=== PATIENT | female | born 1990 | race Caucasian/White ===

== ENCOUNTER 2017-10-07 12:19 | Outpatient (CLI) | payer OTHER ==
[~2017-10-07] VITALS: Ht 160 cm; Wt 86.3 kg
[~2017-10-07 12:19] MED LIST: CALC-649 PO; FERR27TA PO; PREN1TAB49 PO
[2017-10-07 13:16] VITALS: BP 129/74; PULSE 87; RESP 18; Ht 160 cm; Wt 86.3 kg
[2017-10-07 13:24] LABS: BASOPHILS % 0.4 % (0.0-2.0); EOSINOPHILS % 0.2 % (0.0-7.0); HEMATOCRIT 36.4 % (37.0-47.0); HEMOGLOBIN 12.5 g/dl (12.0-16.0); LYMPHOCYTES % 19.7 % (15.0-51.0); MEAN CORPUSCULAR HEMOGLOBIN 31.3 pg (29.0-33.0); MEAN CORPUSCULAR HGB CONC 34.3 g/dl (32.0-37.0); MEAN PLATELET VOLUME 11.8 fl (7.4-10.4); MONOCYTE # 0.8 10^3/ul (0.3-0.9); MONOCYTES % 8.2 % (0.0-11.0); NEUTROPHILS % 70.3 % (39.0-77.0); PLATELET COUNT 243 10^3/UL (140-415); RED CELL DISTRIBUTION WIDTH 13.4 % (11.5-14.5)
[2017-10-07 13:25] LABS: ADD UMIC NO; UR ASCORBIC ACID 20 mg/dL (NEGATIVE); UR BILIRUBIN (Dip) NEGATIVE (NEGATIVE); UR BLOOD (Dip) NEGATIVE (NEGATIVE); UR CLARITY CLEAR (CLEAR); UR COLOR YELLOW (YELLOW); UR GLUCOSE (Dip) NEGATIVE (NEGATIVE); UR KETONES (Dip) NEGATIVE (NEGATIVE); UR LEUKOCYTE ESTERASE (Dip) NEGATIVE Leu/ul (NEGATIVE); UR NITRITE (Dip) NEGATIVE (NEGATIVE); UR SPECIFIC GRAVITY (Dip) 1.016 (1.003-1.030); UR TOTAL PROTEIN (Dip) NEGATIVE (NEGATIVE); UR UROBILINOGEN (Dip) NEGATIVE (NEGATIVE)
[2017-10-07 13:36] LABS: INR 0.84; PROTIME 11.5 Sec (12.2-14.2); PT RATIO 0.9
[2017-10-07 13:37] LABS: PARTIAL THROMBOPLASTIN TIME 27.4 Sec (25.0-35.0)
[2017-10-07 13:39] LABS: ALBUMIN 3.3 g/dl (3.3-4.9); ALBUMIN/GLOBULIN RATIO 0.8; CALCIUM 9.4 mg/dl (8.4-10.2); CREATININE 0.48 mg/dl (0.44-1.00); POTASSIUM 4.3 mmol/L (3.5-5.1); TOTAL PROTEIN 7.4 g/dl (6.1-8.1); URIC ACID 6.1 mg/dl (3.1-7.9)
--- NOTE | 2017-10-07 13:47 | RADRPT ---
PROCEDURE: US OB biophysical profile. CLINICAL INDICATION: induced hypertension TECHNIQUE: Multiple sonographic images of the pelvis were obtained. The images were reviewed on a PACS workstation. COMPARISON: October 06, 2017 FINDINGS: There is a single live intrauterine , in cephalic presentation. A normal heart rate i s identified measuring 142 beats per minute. The amniotic fluid index is within normal limits measur ing 10.7 cm. Placenta is grade II, located posteriorly. Biophysical profile: movement 2/2 tone 2/2. breathing 2/2 DARYL 2/2 Total 06/30 IMPRESSION: 1. Biophysical profile score of 8/8. 2. Single live intrauterine in cephalic presentation with normal heart rate of 142 b pm. 3. Normal amniotic fluid index of 10.7 cm. Physician Rhona Date Time Electronically viewed and signed by Physician Rhona on 10/07/2017 13:47 PRINCESS/
--- NOTE | 2017-10-07 13:57 | RADRPT ---
PROCEDURE: US OB. CLINICAL INDICATION: Size and dates . PIH TECHNIQUE: Multiple sonographic images of the pelvis and gravid uterus were obtained. The images were reviewed on a PACS workstation. COMPARISON: US PELVIS 10/07/2017 FINDINGS: There is a single viable intrauterine gestation. Cardiac activity is present with 148 beats per min ewa. There is a vertex presentation. The placenta is posterior. There is no evidence for an abruption or placenta previa. Measurements were made in order to determine age. The results are as follows: BPD =9.1 cm HC =33.2 cm AC =33.2 cm FL =6.6 cm Estimated gestational age of approximately 36 weeks and 3 days based on ultrasound measurements. Clinical age: 37 weeks and 1 day. The estimated date of delivery is 11/01/17, based on ultrasound measurements. The EFW = 2927 g, 36.8%, based on LMP age. RPTAT: AA IMPRESSION: Single viable intrauterine gestation of approximately 36 weeks and 3 days based on ultrasound measu rements. .Diego Hubbard MD, MD Date Time Electronically viewed and signed by .Diego Hubbard MD, on 10/07/2017 13:57 .S/
--- NOTE | 2017-10-07 15:00 | TRIAGE ---
OB Triage Datetime Report Generated by CPN: 10/07/2017 15:00 Datetime: 10/07/2017 14:30 Stage of : OB Triage Maternal Assessment Level of Consciousness: Fully Conscious Labor Evaluation Frequency: 4UC/HR Monitor Mode: External Duration (sec)2399: 30-210 Quality: Mild Resting Tone [place]: Relaxed Heart Rate FHR Baseline Rate: 145 Monitor Mode: External US Variability: Moderate 6-25 bpm Accelerations: 15X15 Decelerations: None Pain Assessment Pain Scale: 0 Pain Goal: 3 Vaginal Exam Membrane Status: Intact Vaginal Bleeding: None Datetime: 10/07/2017 13:30 Stage of : OB Triage Maternal Assessment Level of Consciousness: Fully Conscious Labor Evaluation Frequency: 4UC/HR Monitor Mode: External Duration (sec)2399: 100-110 Quality: Mild Resting Tone [place]: Relaxed Heart Rate FHR Baseline Rate: 145 Monitor Mode: External US Variability: Moderate 6-25 bpm Accelerations: 15X15 Decelerations: None Category: Category I Pain Assessment Pain Scale: 0 Pain Goal: 3 Vaginal Exam Membrane Status: Intact Vaginal Bleeding: None Datetime: 10/07/2017 13:12 Assessment Type: Triage Maternal Assessment Level of Consciousness: Fully Conscious DTR's/Clonus: DTRs 2+; No Clonus Headache: Denies Blurred Vision: No Respiratory Effort: Unlabored; Regular Rhythm; Equal Expansion Breath Sounds, Left: Clear and Equal Breath Sounds, Right: Clear and Equal Nausea/Vomiting: Denies RUQ Epigastric Pain: Denies Lower Extremities Edema: Bilateral Lower Extremities Degree: 1+ Upper Extremities Edema: None Degree: None Facial Edema: None Fall Risk Assessment History of Falling: (0) No Secondary Diagnosis: (0) No Ambulatory Aid: (0) Bedrest/Nurse Assist IV Therapy: (0) No Gait: (0) Normal/Bedrest/Immobile Mental Status: (0) Oriented to Own Ability Fall Score: 0 Fall Risk Score Definition: No Risk: No action required Datetime: 10/07/2017 13:10 Time of Arrival: 10/07/2017 12:14 EGA: 37.1 Arrived By: Ambulatory Arrived From: Office Chief Complaint: PT SENT FROM CLINIC FOR POSSIBLE PIH Movement: Present Contractions: Denies/Absent Rupture of Membranes: Denies Vaginal Bleeding: None Vaginal Discharge: Denies Recent Sexual Intercouse: Denies Abdominal Trauma: Not Applicable Patient Complaints: None Time Provider Notified: 10/07/2017 12:14 Provider Notified: AWA Initial Plan: PIH PANEL/BPP/EFW Datetime: 10/07/2017 12:31 Monitor Mode: External Monitor Mode: External US
--- NOTE | 2017-10-07 16:09 | PN ---
Triage Information Date/Time 10/07/2017 Reason for visit: elevated blood pressure noted in office visit Weeks of Gestation 37 weeks and 1 day /Para Diabetes: none Hypertention: none Additional information 27 years old with IUP at 37 weeks and 1 days noted to have elevated Blood pressure in office visit, was sent to Triage for r/o Preclampsia. Denies any ALCANTAR, Blurred vision or epigastric pain. She denies any LOF, vaginal bleeding or decreased movement. Denies any other complaint Objective Vital Signs Date Time Temp Pulse Resp B/P Pulse Ox O2 Delivery O2 Flow Rate FiO2 10/07/17 13:16 98.2 87 18 129/74 98 Room Air Heart Rate: 130's Contractions: None Exam GSA: A&O, NAD Abdomen." Soft , non tender, gravid,. Fundal Height consistent with GA NST: Cat 1 Extremities: no calf tendernes, no click, no edema Hematology - 72 Hrs Test 10/07/17 12:30 White Blood Count 10.010^3/ul (4.8-10.8) Red Blood Count 4.0010^6/ul (4.20-5.40) L Hemoglobin 12.5g/dl (12.0-16.0) Hematocrit 36.4% (37.0-47.0) L Mean Corpuscular Volume 91.0fl (82.0-101.0) Mean Corpuscular Hemoglobin 31.3pg (29.0-33.0) Mean Corpuscular Hemoglobin Concent 34.3g/dl (32.0-37.0) Red Cell Distribution Width 13.4% (11.5-14.5) Platelet Count 18748^3/UL (140-415) Mean Platelet Volume 11.8fl (7.4-10.4) H Neutrophils % 70.3% (39.0-77.0) Lymphocytes % 19.7% (15.0-51.0) Monocytes % 8.2% (0.0-11.0) Eosinophils % 0.2% (0.0-7.0) Basophils % 0.4% (0.0-2.0) Nucleated Red Blood Cells % 0.0/100WBC (0.0-0.0) Neutrophils # 7.010^3/ul (1.6-7.5) Lymphocytes # 2.010^3/ul (0.8-2.9) Monocytes # 0.810^3/ul (0.3-0.9) Eosinophils # 0.010^3/ul (0.0-0.5) Basophils # 0.010^3/ul (0.0-0.1) Nucleated Red Blood Cells # 0.010^3/ul (0.0-0.0) Chemistry Test 10/07/17 12:30 Sodium Level 138mmol/L (135-144) Potassium Level 4.3mmol/L (3.5-5.1) Chloride Level 109mmol/L (97-110) Carbon Dioxide Level 21mmol/L (21-31) Anion Gap 12 (8-16) Blood Urea Nitrogen 12mg/dl (7-20) Creatinine 0.48mg/dl (0.44-1.00) Glucose Level 85mg/dl (70-220) Uric Acid 6.1mg/dl (3.1-7.9) Calcium Level 9.4mg/dl (8.4-10.2) Total Bilirubin 0.0mg/dl (0.2-1.3) L Direct Bilirubin 0.00mg/dl (0.00-0.20) Indirect Bilirubin 0.0mg/dl (0-1.1) Aspartate Amino Transf (AST/SGOT) 43IU/L (15-46) Alanine Aminotransferase (ALT/SGPT) 65IU/L (13-69) Alkaline Phosphatase 244IU/L (42-121) H Total Protein 7.4g/dl (6.1-8.1) Albumin 3.3g/dl (3.3-4.9) Globulin 4.10g/dl (1.3-3.2) H Albumin/Globulin Ratio 0.80 Results/Medications Result Diagram: 10/07/17 1230 10/07/17 1230 Results 24 hrs Laboratory Tests Test 10/07/17 12:30 White Blood Count 10.0 Red Blood Count 4.00 L Hemoglobin 12.5 Hematocrit 36.4 L Mean Corpuscular Volume 91.0 Mean Corpuscular Hemoglobin 31.3 Mean Corpuscular Hemoglobin Concent 34.3 Red Cell Distribution Width 13.4 Platelet Count 243 Mean Platelet Volume 11.8 H Neutrophils % 70.3 Lymphocytes % 19.7 Monocytes % 8.2 Eosinophils % 0.2 Basophils % 0.4 Nucleated Red Blood Cells % 0.0 Neutrophils # 7.0 Lymphocytes # 2.0 Monocytes # 0.8 Eosinophils # 0.0 Basophils # 0.0 Nucleated Red Blood Cells # 0.0 Prothrombin Time 11.5 L Prothrombin Time Ratio 0.9 INR International Normalized Ratio 0.84 Activated Partial Thromboplast Time 27.4 Fibrinogen 672.0 H Urine Color YELLOW Urine Clarity CLEAR Urine pH 6.0 Urine Specific [place] 1.016 Urine Ketones NEGATIVE Urine Nitrite NEGATIVE Urine Bilirubin NEGATIVE Urine Urobilinogen NEGATIVE Urine Leukocyte Esterase NEGATIVE Urine Hemoglobin NEGATIVE Urine Glucose NEGATIVE Urine Total Protein NEGATIVE Sodium Level 138 Potassium Level 4.3 Chloride Level 109 Carbon Dioxide Level 21 Anion Gap 12 Blood Urea Nitrogen 12 Creatinine 0.48 Glucose Level 85 Uric Acid 6.1 Calcium Level 9.4 Total Bilirubin 0.0 L Direct Bilirubin 0.00 Indirect Bilirubin 0.0 Aspartate Amino Transf (AST/SGOT) 43 Alanine Aminotransferase (ALT/SGPT) 65 Alkaline Phosphatase 244 H Total Protein 7.4 Albumin 3.3 Globulin 4.10 H Albumin/Globulin Ratio 0.80 Imaging Results PROCEDURE: US OB. CLINICAL INDICATION: Size and dates . PIH TECHNIQUE: Multiple sonographic images of the pelvis and gravid uterus were obtained. The images were reviewed on a PACS workstation. COMPARISON: US PELVIS 10/07/2017 FINDINGS: There is a single viable intrauterine gestation. Cardiac activity is present with 148 beats per minute. There is a vertex presentation. The placenta is posterior. There is no evidence for an abruption or placenta previa. Measurements were made in order to determine age. The results are as follows: BPD = 9.1 cm HC = 33.2 cm AC = 33.2 cm FL = 6.6 cm Estimated gestational age of approximately 36 weeks and 3 days based on ultrasound measurements. Clinical age: 37 weeks and 1 day. The estimated date of delivery is 11/01/17, based on ultrasound measurements. The EFW = 2927 g, 36.8%, based on LMP age. RPTAT: AA IMPRESSION: Single viable intrauterine gestation of approximately 36 weeks and 3 days based on ultrasound measurements. Disposition: Discharge Assessment/Plan 27 years old with IUP at 37 weeks and 1 day elevated blood pressure noted in office Blood pressure noted to be normal during observation in Triage PIH labs are normal DARYL: 10 normal Strict preclampsia discussed Strict labor precaution given DC home follow up in 2-3 days with Ob office Has appt with OB office in 3 days Signs and symptoms again discussed in detail.Patient verbalized understanding'/ LEESA MALDONADO MD Oct 07, 2017 16:09
== END 2017-10-07 15:10 | disposition home or self-care (01) ==
LOC: OBT 12:19 → L-D 12:19 → OBT 15:10
PROVIDERS: ATTEND Obstetrics & Gynecology
DX: O26.893 Other specified pregnancy related conditions, third trimester (principal); R03.0 Elevated blood-pressure reading, without diagnosis of hypertension; Z3A.37 37 weeks gestation of pregnancy
CPT/HCPCS: 36415; 76815; 76818; 80053; 81003; 84560; 85025; 85384; 85610; 85730; Z7500; G0463

== ENCOUNTER 2017-10-21 22:00 | Inpatient (IN) | payer OTHER ==
[~2017-10-21] VITALS: Ht 160 cm; Wt 85.5 kg
[~2017-10-21 22:00] MED LIST changes: -CALC-649 PO
[2017-10-21 23:58] VITALS: Ht 160 cm; Wt 85.5 kg
[2017-10-22] MEDS ORDERED: LIDOCAINE 1% (MPF) 30 ML INJ INJ PRN
[2017-10-22] MEDS ORDERED: LACTATED RINGER'S 1,000 ML IV PRN
[2017-10-22] MEDS ORDERED: BUTORPHANOL 2 MG INJ IV PRN
[2017-10-22] MEDS ORDERED: IBUPROFEN 600 MG TAB PO PRN
[2017-10-22] MEDS ORDERED: OXYCODONE/ASPIRIN (4.88/325) TAB PO PRN
[2017-10-22] MEDS: LACTATED RINGER'S 1,000 ML IV SCH ×3 (00:21→15:40)
--- NOTE | 2017-10-22 00:35 | RADRPT ---
PROCEDURE: ULTRASOUND OBSTETRICAL CLINICAL INDICATION: 27-year-old female in labor for size and date determination. TECHNIQUE: Multiple sonographic images of the pelvis were obtained. The images were reviewed on a PACS workstation. COMPARISON: Ultrasound OB October 07, 2017. FINDINGS: The cervix is not well visualized. There is a single viable intrauterine gestation. Cardiac activit y is present with 141 beats per minute. There is a vertex presentation. Measurements were made in or jovanni to determine age. The results are as follows: BPD = 9.74 cm, HC = 33.06 cm, AC = 34.05 cm, FL = 7.36 cm. This yields and estimated gestational ag e of approximately 38 weeks 2 days. The estimated date of delivery is November 03, 2017. The EFW = 3395 +/- 509 g (7 lb 8 oz). The GP is 42%. The placenta is posterior grade II. There is no evidence for an abruption or placenta previa. IMPRESSION: 1. Single viable intrauterine gestation of approximately 38 weeks 2 days with vertex presentation. 2. The estimated weight is 3395 +/- 509 g (7 lb 8 oz). The GP is 42%. .Cooper Bradford MD, Date Time Electronically viewed and signed by .Cooper Bradford MD, on 10/22/2017 00:35 .M/
[2017-10-22] MEDS: MISOPROSTOL 25 MCG CAPSULE PO PRN ×2 (00:57→04:55)
[2017-10-22 01:45] LABS: BASOPHILS % 0.2 % (0.0-2.0); EOSINOPHILS % 0.2 % (0.0-7.0); HEMATOCRIT 36.3 % (37.0-47.0); HEMOGLOBIN 12.7 g/dl (12.0-16.0); LYMPHOCYTES # 2.1 10^3/ul (0.8-2.9); LYMPHOCYTES % 21.6 % (15.0-51.0); MEAN CORPUSCULAR HEMOGLOBIN 31.6 pg (29.0-33.0); MEAN CORPUSCULAR VOLUME 90.3 fl (82.0-101.0); MEAN PLATELET VOLUME 12.8 fl (7.4-10.4); MONOCYTE # 0.7 10^3/ul (0.3-0.9); MONOCYTES % 7.6 % (0.0-11.0); NEUTROPHIL # 6.7 10^3/ul (1.6-7.5); NEUTROPHILS % 69.5 % (39.0-77.0); PLATELET COUNT 232 10^3/UL (140-415); RED BLOOD COUNT 4.02 10^6/ul (4.20-5.40); RED CELL DISTRIBUTION WIDTH 13.9 % (11.5-14.5); WHITE BLOOD COUNT 9.6 10^3/ul (4.8-10.8)
[2017-10-22 02:05] LABS: ALBUMIN 3.1 g/dl (3.3-4.9); ALBUMIN/GLOBULIN RATIO 0.77; BILIRUBIN,INDIRECT 0.1 mg/dl (0-1.1); BILIRUBIN,TOTAL 0.1 mg/dl (0.2-1.3); CALCIUM 9.1 mg/dl (8.4-10.2); CREATININE 0.53 mg/dl (0.44-1.00); POTASSIUM 3.7 mmol/L (3.5-5.1); TOTAL PROTEIN 7.1 g/dl (6.1-8.1)
[2017-10-22 02:06] LABS: ADD UMIC YES; UR ASCORBIC ACID NEGATIVE (NEGATIVE); UR BACTERIA FEW /HPF (NONE SEEN); UR BILIRUBIN (Dip) NEGATIVE (NEGATIVE); UR BLOOD (Dip) NEGATIVE (NEGATIVE); UR CLARITY CLEAR (CLEAR); UR COLOR YELLOW (YELLOW); UR GLUCOSE (Dip) NEGATIVE (NEGATIVE); UR KETONES (Dip) NEGATIVE (NEGATIVE); UR LEUKOCYTE ESTERASE (Dip) NEGATIVE Leu/ul (NEGATIVE); UR NITRITE (Dip) NEGATIVE (NEGATIVE); UR RBC 1 /HPF (0-5); UR SPECIFIC GRAVITY (Dip) 1.017 (1.003-1.030); UR TOTAL PROTEIN (Dip) 1+ mg/dl (NEGATIVE); UR UROBILINOGEN (Dip) NEGATIVE (NEGATIVE)
[2017-10-22 02:06] LABS: INR 0.86; PROTIME 11.7 Sec (12.2-14.2); PT RATIO 0.9
[2017-10-22 02:07] LABS: PARTIAL THROMBOPLASTIN TIME 27.7 Sec (25.0-35.0)
[2017-10-22 02:35] VITALS: BP 143/90; RESP 18
[2017-10-22] MEDS ORDERED: OXYTOCIN 30 UNITS/LR 500 ML IV SCH ×3 (09:00)
[2017-10-22] MEDS ORDERED: DINOPROSTONE 10 MG VAG SUPP VAG ONE (10:00)
--- NOTE | 2017-10-22 15:03 | HP ---
Date/Time of Note Date/Time of Note DATE: 10/22/17 TIME: 15:00 OB - History Hx of Present Free Text/Dictation Admitted for induction of labor at 39 weeks and 2 days because of elevated blood pressure and gestational diabetes which was observed in the clinic Last Menstrual Period: Dec 06, 2016 Estimated Due Date: Oct 27, 2017 : 4 Para: 1 Spontaneous : 1 Therapeutic : 2 Care: Good Care Ultrasounds: Normal mid trimester US Obstetrical Complications: Gestational Diabetes Medical Complications: None Past Family/Social History * Past Medical, Surgical, Family and Obstetric Histories reviewed from chart. Blood Type: B+ Rubella: immune RPR/VDRL: Negative GBS Status: Negative HBsAG: Negative OB Admission Exam Vital Signs Vital Signs Vital Signs Date Time Temp Pulse Resp B/P Pulse Ox O2 Delivery O2 Flow Rate FiO2 10/22/17 02:35 97.9 18 143/90 Room Air Physical Exam HEENT: WNL Heart: Rhythm Normal Lungs: Clear, Equal Abdomen: WNL Extremities: Normal Reflexes: Normal Cervical Dilatation: Fingertip Effacement: 0% Station: -3 Membranes: Intact Heart Rate: 140's Accelerations: Accelerations Present Decelerations: No Decelerations Varibility: Marked Contractions on Admission: None Last 72 hours Lab Results CBC & BMP 10/22/17 00:30 Liver Function Test 10/22/17 00:30 Alanine Aminotransferase (ALT/SGPT) 64 Albumin 3.1 L Alkaline Phosphatase 297 H Aspartate Amino Transf (AST/SGOT) 49 H Direct Bilirubin 0.00 Total Protein 7.1 OB Assessment/Plan Other Assessment: Term gestation Gestational hypertension Gestational diabetes Other plan: Patient was started on Cytotec by on-call physician This service change the Cytotec to Cervidil insertion EFRAIN CHU MD Oct 22, 2017 15:03
[2017-10-22] MEDS: OXYTOCIN 30 UNITS/LR 500 ML IV SCH (22:39)
[2017-10-22] MEDS: LACTATED RINGER'S 1,000 ML IV* SCH (22:39)
--- NOTE | 2017-10-22 22:39 | LDN ---
Date/Time of Note Date/Time of Note DATE: 10/22/17 TIME: 22:37 Delivery Summary of a viable baby girl weighing 3230 grams or 7# 2 oz, 19" long and with Apgars of 8/9. Weeks of Gestation 39w 2d Placenta Delivered: Spontaneously Meconium: none Episiotomy: No Perineal laceration: 1 Laceration repair: First degree perineal laceration repaired with 2-0 chromic. Anesthesia type: Local Estimated blood loss: 350 Sponge & Needle done & correct: Yes All needle counts correct: Yes Any foreign bodies felt in the: No (vagina) Problems: Infant Delivery Information Sex Sex: female Apgars 1 Minute: 8 5 Minute: 9 Suctioning Nose & mouth suctioned at brandie: Yes Delee suction performed: No Umbilical Cord Umbilical cord with: 3 Vessels Cord presentations: nuchal cord Nuchal cord present X: 1 Cord Blood was obtained: Yes Mother & Baby Disposition Disposition Mom & Baby to Maternity; Good: Yes Baby to NICU: No TANIKA CAMPA MD Oct 22, 2017 22:39
[2017-10-22] MEDS ORDERED: OXYTOCIN 30 UNITS/LR 500 ML IV PRN ×2 (23:00)
[2017-10-22] MEDS ORDERED: CARBOPROST 250 MCG INJ IM PRN ×2 (23:00)
[2017-10-22] MEDS ORDERED: MISOPROSTOL 200 MCG TAB PR PRN ×2 (23:00)
[2017-10-22] MEDS ORDERED: LANOLIN 7 GM TUBE TOP PRN (23:00)
[2017-10-22] MEDS ORDERED: METHYLERGONOVINE 0.2 MG INJ IM PRN ×2 (23:00)
[2017-10-22] MEDS ORDERED: BENZOCAINE 20% 56 ML SPRAY TOP PRN (23:00)
[2017-10-22] MEDS ORDERED: HYDROCODONE/APAP (5/325) TAB PO PRN (23:00)
[2017-10-22 23:40] VITALS: BP 136/70; PULSE 74; RESP 20
[2017-10-23] MEDS: IBUPROFEN 600 MG TAB PO SCH ×4 (00:42→17:47)
[2017-10-23] MEDS: OXYTOCIN 30 UNITS/LR 500 ML IV SCH (02:39)
[2017-10-23 03:45] VITALS: BP 128/60; PULSE 70; RESP 20
[2017-10-23] MEDS: LACTATED RINGER'S 1,000 ML IV* SCH ×2 (06:39→14:39)
[2017-10-23 08:21] LABS: BASOPHILS % 0.1 % (0.0-2.0); EOSINOPHILS % 0.1 % (0.0-7.0); HEMATOCRIT 33.2 % (37.0-47.0); HEMOGLOBIN 11.4 g/dl (12.0-16.0); LYMPHOCYTES # 2.6 10^3/ul (0.8-2.9); LYMPHOCYTES % 17.2 % (15.0-51.0); MEAN CORPUSCULAR HEMOGLOBIN 31.4 pg (29.0-33.0); MEAN CORPUSCULAR HGB CONC 34.3 g/dl (32.0-37.0); MEAN CORPUSCULAR VOLUME 91.5 fl (82.0-101.0); MONOCYTE # 0.9 10^3/ul (0.3-0.9); MONOCYTES % 5.8 % (0.0-11.0); NEUTROPHIL # 11.5 10^3/ul (1.6-7.5); NEUTROPHILS % 75.9 % (39.0-77.0); PLATELET COUNT 207 10^3/UL (140-415); RED BLOOD COUNT 3.63 10^6/ul (4.20-5.40); RED CELL DISTRIBUTION WIDTH 13.9 % (11.5-14.5); WHITE BLOOD COUNT 15.1 10^3/ul (4.8-10.8)
[2017-10-23 08:45] VITALS: BP 134/73; PULSE 66; RESP 16
[2017-10-23 11:58] VITALS: BP 124/76; PULSE 82; RESP 16
--- NOTE | 2017-10-23 14:51 | PD.PPDC ---
GOVERNMENT INSTRUCTOR Discharge Instruction Provider Information Physician Information 27-year-old female had vaginal delivery Diagnosis Final Diagnosis: Status post vaginal delivery Condition Patient Condition: Good Diet Diet: Resume Regular Diet Activity/Restrictions Activity: Normal Activity May Shower Restrictions: Nothing in the Vagina Return to Work or School: Dec 07, 2017 Follow-up Follow-up with Physician: 4, Week/Weeks (In clinic) Return to clinic for OB Instructions: Breast Tenderness Depression Comment: Pelvic rest for 6 weeks EFRAIN CHU MD Oct 23, 2017 14:51
[2017-10-23] MEDS ORDERED: IBUP-1542 PO (14:52)
--- NOTE | 2017-10-23 14:54 | DS ---
Date/Time of Note Date/Time of Note Home next day DATE: 10/23/17 TIME: 14:53 Obstetrical Discharge Record Final Diagnosis Final Diagnosis: Term delivered Other Final Diagnosis Status post vaginal delivery Vaginal Delivery Obstetrical Delivery: Spontaneous, Laceration, Repaired Complications Augmentation: No Induction: Yes Condition on Discharge Physical Assessment Last Vitals: See nurse's notes Voiding: Yes Bowel Movement: Yes Breast: Soft, non-tender, Filling Fundus: Firm Abdomen and Incision: Soft bowel sounds present Fundus is firm at U Episiotomy: Perineum is healing Calf Tenderness: No Patient Condition: Good EFRAIN CHU MD Oct 23, 2017 14:54
[2017-10-23 16:00] VITALS: BP 131/87; PULSE 83; RESP 16
[2017-10-23] MEDS: CEPHALEXIN 500 MG CAP PO SCH ×2 (17:47→19:00)
[2017-10-23 20:00] VITALS: BP 131/80; PULSE 80; RESP 18
[2017-10-24] MEDS: IBUPROFEN 600 MG TAB PO SCH ×3 (00:01→12:21)
[2017-10-24] MEDS: CEPHALEXIN 500 MG CAP PO SCH ×3 (00:01→12:21)
[2017-10-24 04:10] VITALS: BP 109/58; PULSE 81; RESP 20
[2017-10-24 07:45] VITALS: BP 114/59; PULSE 78; RESP 18
[2017-10-24] MEDS ORDERED: MEASLES,MUMPS,RUBELLA VACCINE INJ SC* ONE (09:00)
[2017-10-24] MEDS ORDERED: DIPHTH/TET/ACEL PERTUSS (ADULT) 0.5 ML VIAL IM* ONE (09:00)
[2017-10-25] MEDS ORDERED: INFLUENZA VIRUS VACCINE 0.5 ML (DISPENSING) IM* ONE (09:00)
== END 2017-10-24 14:15 | disposition home or self-care (01) | DRG 775 ==
LOC: L-D 23:00 → PP1 10-22 23:25
PROVIDERS: ADMIT Obstetrics & Gynecology; ATTEND Obstetrics & Gynecology
PROC: 10E0XZZ Delivery of Products of Conception, External Approach (ICD-10-PCS; principal; 2017-10-22)
PROC: 0HQ9XZZ Repair Perineum Skin, External Approach (ICD-10-PCS; 2017-10-22)
PROC: 3E033VJ Introduction of Other Hormone into Peripheral Vein, Percutaneous Approach (ICD-10-PCS; 2017-10-22)
DX: O69.81X0 Labor and delivery complicated by cord around neck, without compression, not applicable or unspecified (principal); O24.429 Gestational diabetes mellitus in childbirth, unspecified control; O70.0 First degree perineal laceration during delivery; Z3A.39 39 weeks gestation of pregnancy; Z37.0 Single live birth
CPT/HCPCS: 76815; 80053; 81001; 82962; 84560; 85025; 85384; 85610; 85730; 86592; 86900; 86901; 87340; 90715; 99464; J0595; J2590; J7120